=== PATIENT | male | born 1990 | race American Indian/Alaskan Native ===

== ENCOUNTER 2018-08-29 17:12 | Emergency (ER) | payer OTHER ==
[2018-08-29 17:38] VITALS: BP 147/102
--- NOTE | 2018-08-29 17:40 | Emergency Department Report ---
Stated Complaint: SLIGHT SWELLING OF LEFT RIB Time Seen by Provider: 08/29/18 17:34 - HPI History of Present Illness: This is a 28 y.o. male that presents with cough for 3-4 weeks. Currently taking antibiotics for URI by PCP yesterday. PMH Asthma - Exam Vital Signs: Vital Signs 08/29/18 17:35 Temperature 98.2 F Pulse Rate 101 H Respiratory 18 Rate Blood Pressure 147/102 O2 Sat by Pulse 96 Oximetry MSE screening note: Focused history and physical exam performed. Due to findings the following was ordered: CXR ED Disposition for MSE Condition: Stable
--- NOTE | 2018-08-29 20:30 | XRay Report ---
PROCEDURE: XR CHEST ROUTINE 2V TECHNIQUE: PA and lateral chest radiographs were obtained. HISTORY: cough COMPARISONS: None. FINDINGS: Heart: Normal. Mediastinum/Vessels: Normal. Lungs/Pleural space: Normal. Bony thorax: No acute osseous abnormality. IMPRESSION: Normal examination. This document is electronically signed by Frantz Nunez MD., August 29 2018 08:28:20 PM ET
--- NOTE | 2018-08-29 21:33 | Emergency Department Report ---
ED General Adult HPI - General Chief complaint: Upper Respiratory Infection Stated complaint: SLIGHT SWELLING OF LEFT RIB Time Seen by Provider: 08/29/18 17:34 Source: patient Mode of arrival: Ambulatory Limitations: No Limitations - History of Present Illness Initial comments: 28-year-old -[place] male who was seen yesterday by his doctor comes in complaining of swelling to the left torso 2 days. Patient denies any pain no shortness of breathing no redness no trauma. Patient only admits to a cough and upper respiratory complaints that was treated by his doctor yesterday. -: days(s) (2) Location: chest Severity scale (0 -10): 0 - Related Data Allergies Allergy/AdvReac Type Severity Reaction Status Date / Time No Known Allergies Allergy Verified 08/29/18 17:34 ED Review of Systems ROS: Stated complaint: SLIGHT SWELLING OF LEFT RIB Other details as noted in HPI Comment: All other systems reviewed and negative ED Past Medical Hx - Past Medical History Previous Medical History?: Yes Hx Asthma: Yes - Surgical History Past Surgical History?: No - Social History Smoking Status: Never Smoker ED Physical Exam - General Limitations: No Limitations - Head Head exam: Present: atraumatic, normocephalic - Eye Eye exam: Present: EOMI - ENT ENT exam: Present: mucous membranes moist - Cardiovascular Cardiovascular Exam: Present: regular rate, normal rhythm, other (no swelling appreciated to the left torso patient has central obesity with breast). Absent: systolic murmur, diastolic murmur, rubs, gallop - Neurological Exam Neurological exam: Present: alert, oriented X3 - Psychiatric Psychiatric exam: Present: normal affect, normal mood - Skin Skin exam: Present: warm, dry, intact, normal color. Absent: rash ED Course Vital Signs 08/29/18 17:35 Temperature 98.2 F Pulse Rate 101 H Respiratory 18 Rate Blood Pressure 147/102 O2 Sat by Pulse 96 Oximetry ED Medical Decision Making - Radiology Data Radiology results: report reviewed Patient: GLORIA ACUÑA MR#: [id number] 0 : 1990 Acct:[id number] Age/Sex: 28 / M ADM Date: 08/29/18 Loc: ED Attending Dr: Ordering Physician: KARRIE TAGN Date of Service: 08/29/18 Procedure(s): XR chest routine 2V Accession Number(s): [id number] cc: KARRIE TANG Fluoro Time In Minutes: PROCEDURE: XR CHEST ROUTINE 2V TECHNIQUE: PA and lateral chest radiographs were obtained. HISTORY: cough COMPARISONS: None. FINDINGS: Heart: Normal. Mediastinum/Vessels: Normal. Lungs/Pleural space: Normal. Bony thorax: No acute osseous abnormality. IMPRESSION: Normal examination. This document is electronically signed by Otoniel Nunez MD., August 29 2018 08:28:20 PM ET Transcribed By: [facility] Dictated By: OTONIEL NUNEZ Electronically Authenticated By: OTONIEL UNNEZ Signed Date/Time: 08/29/182029 DD/ 36 TD/TT: 08/29/181958 - Medical Decision Making Patient has been evaluated by this provider in fast track. Patient had chest x-ray shows normal examination. Discussed patient that the swelling is not too concerning. Patient has no pain no redness nontender to palpate. Discussed with patient to continue with his antibiotics and medication that was given to him by his doctor yesterday. Critical care attestation.: If time is entered above; I have spent that time in minutes in the direct care of this critically ill patient, excluding procedure time. ED Disposition Clinical Impression: Worried well Disposition: DC-01 TO HOME OR SELFCARE Is pt being admited?: No Does the pt Need Aspirin: No Condition: Stable Additional Instructions: Continue with your medications that was prescribed to yesterday by her doctor. Your chest x-ray was negative shows normal examination. Follow back up which her primary care provider if you have any further concerns. Referrals: DEV MERCADO MD [Primary Care Provider] - 3-5 Days
== END 2018-08-29 21:40 | disposition home or self-care (01) ==
LOC: ED 17:12
DX: Z71.1 Person with feared health complaint in whom no diagnosis is made (principal)
CPT/HCPCS: 71046; 99283